=== PATIENT | female | born 1965 | race Caucasian/White ===

== ENCOUNTER 2019-03-03 12:06 | Emergency (ER) | payer OTHER ==
--- NOTE | 2019-03-03 12:11 | PDOC ---
History of Present Illness - General History Source: Patient - History of Present Illness Initial Comments: 03/03/19 12:45 The patient is a 53 year old female with a significant PMH of OA, R Rotator tear w/associated shoulder impingement and morbid obesity who presents to our ED complaining of L shoulder pain. 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 Is able to minimally range arm with pain. Denies any associated numbness/tingling , head trauma, LOC. Allergy: Naproxen Surgical: R rotator cuff repair, C/S x2, B/L carpal tunnel, TMJ x3, sinus PMD: [facility] <Carolyn Simpson - Last Filed: 03/03/19 17:47> <Genna Patel - Last Filed: 03/03/19 17:51> - General Chief Complaint: Injury Stated Complaint: LEFT SHOULDER PAIN Time Seen by Provider: 03/03/19 12:11 Past History <Carolyn Simpson - Last Filed: 03/03/19 17:47> <Genna Patel - Last Filed: 03/03/19 17:51> - Past Medical History Allergies/Adverse Reactions: Allergies Allergy/AdvReac Type Severity Reaction Status Date / Time naproxen [From Naprosyn] Allergy Intermediate Swelling Verified 03/03/19 12:49 Home Medications: Ambulatory Orders Ibuprofen [Motrin -] 800 mg PO BID 03/03/19 Oxycodone HCl 10 mg PO QID PRN #12 tablet MDD 4 03/03/19 *Physical Exam - Vital Signs Last Vital Signs Temp Pulse Resp BP Pulse Ox 98.3 F 94 H 22 H 129/67 100 03/03/19 12:07 03/03/19 14:50 03/03/19 14:50 03/03/19 14:50 03/03/19 14:50 <Genna Patel - Last Filed: 03/03/19 17:51> Procedures - Joint Reduction Left Joint Reduction Site: left: Shoulder Pre-Procedure NV Exam: normal Conscious Sedation: Yes Reduction Attempts: 1 Anesthesia: Versed Procedure: Traction Counter Traction Post-Procedure NV Exam: normal Complications: No <Carolyn Simpson - Last Filed: 03/03/19 17:47> ED Treatment Course - RADIOLOGY Radiology Studies Ordered: Category Date Time Status SHOULDER-LEFT [RAD] Stat Radiology 03/03/19 15:00 Taken - Medications Given in the ED: ED Medications Discontinued Medications Generic Name Dose Route Start Last Admin Trade Name Vanda PRN Reason Stop Dose Admin Fentanyl 100 mcg 03/03/19 13:44 03/03/19 14:51 Sublimaze Injection - IVPUSH 03/03/19 13:45 100 mcg ONCE ONE Administration Ibuprofen 600 mg 03/03/19 12:38 03/03/19 12:52 Motrin - PO 03/03/19 12:39 600 mg ONCE ONE Administration Midazolam HCl 5 mg 03/03/19 13:44 03/03/19 14:52 Versed - IVPUSH 03/03/19 13:45 5 mg ONCE ONE Administration Sodium Chloride 1,000 ml 03/03/19 15:00 03/03/19 15:00 Normal Saline - IV 03/03/19 15:01 1,000 ml ONCE ONE Administration <Genna Patel - Last Filed: 03/03/19 17:51> Medical Decision Making - Medical Decision Making 03/03/19 14:16 53 year old female with occupational shoulder injury. Will obtain L shoulder XR to r/o acute fracture vs. humeral dislocation. Patient declining pain medication at this time. Reassess. 03/03/19 14:32 Shoulder XR shows L shoulder with widened joint space alignment, inferior humeral head dislocation Patient consents to procedural sedation Fentanyl (100 mg) Versed (5 mg) 03/03/19 15:36 My read of XR shows improved humeral replacement, formal read pending 03/03/19 15:47 Post procedure BP 80's/40's - will give additional 1 L IV NS. 03/03/19 16:06 Repeat XR 03/03/19 16:28 Patient reassed @ bedside BP 94/56 - 2nd L IV NS hanging; pain significantly improved, tolerating PO intake 03/03/19 16:30 03/03/19 16:48 Repeat BP 118/94 03/03/19 17:17 VSS Will discharge home with orthopedic follow-up and return precautions. <Carolyn Simpson - Last Filed: 03/03/19 17:47> *DC/Admit/Observation/Transfer <Carolyn Simpson - Last Filed: 03/03/19 17:47> - Discharge Dispostion Decision to Admit order: No <Genna Patel - Last Filed: 03/03/19 17:51> Diagnosis at time of Disposition: Dislocation of shoulder, inferior, left, closed Qualifiers: Encounter type: initial encounter Qualified Code(s): S43.035A - Inferior dislocation of left humerus, initial encounter - Discharge Dispostion Disposition: HOME Condition at time of disposition: Stable - Prescriptions Prescriptions: Oxycodone HCl 10 mg PO QID PRN #12 tablet MDD 4 PRN Reason: Pain Level 7 - 10 - Referrals Referrals: Keyshawn Brown MD [Staff Physician] - - Patient Instructions Printed Discharge Instructions: Shoulder Dislocation Additional Instructions: Please make a follow-up appointment with your orthopedic doctor in the next 48 hours. We have provided you with a referral should you not be able to see your orthopedist or you can call your insurance company for a list of referrals. Your care is not complete until evaluated by your orthopedic surgeon. We have sent a prescription for pain medication to your pharmacy, please take as directed. Return to the Emergency Department for any new/worsening/concerning symptoms. may take tylenol/motrin every 6 hours as needed for mild pain Please take IBUPROFEN (aka MOTRIN, ADVIL, ALEVE) 400 mg and/or ACETAMINOPHEN ( aka Tylenol) 650-975 mg every 6 hours, as needed, for pain. Please do not take these medications if you have a bleeding disorder, stomach or GI ulcer problems or liver disease. Please take one tablet of OXYCODONE every 6 hours, as needed for SEVERE pain. Please do not take this medication unless you absolutely need it, it is very addictive. Please do not drive, operate heavy machinery or make important decisions while on this medication, it can cloud your judgement.
[2019-03-03 12:27] VITALS: TEMP 98.3; BMI 45.8
[2019-03-03] MEDS ORDERED: IBUPROFEN 600 MG TABLET (FP) PO ONE ×2 (12:38→12:51)
--- NOTE | 2019-03-03 12:46 | PDOC ---
Attending Attestation - Resident Resident Name: Carolyn Simpson - ED Attending Attestation I have performed the following: I have examined & evaluated the patient, The case was reviewed & discussed with the resident, I agree w/resident's findings & plan - HPI HPI: 03/03/19 12:43 53-year-old female with history of osteoarthritis, rotator cuff injury, obesity p/w left shoulder pain today. 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 able to move her arm, but worse with pain. +numbness/tingling to fingers ; no weakness. no skin changes. no fall or head injury no meds taken [employer] P[employer]ER 03/03/19 17:54 - Physicial Exam PE: 03/03/19 12:46 General: NAD, well appearing, obese Vascular: 2+ DP pulses symmetric and equal. Back: no midline tenderness, no stepoffs, FROM Focused MSK/Neuro Exam of Upper Extremity: shoulder abduction/adduction/flexion /extension and prox strength 5/5 actively against resistance. 5/5 shoulder shrug strength. deltoid sensation intact; +left AC jt/anterior shoulder TTP. sensation grossly intact in median/radial/ulnar distribution. distal institute scientist strength 5/5. 2+ radialis pulses bilaterally and symmetric. Skin: color normal color, warm and well perfused. 03/03/19 17:54 - Medical Decision Making 03/03/19 12:45 ddx. shoulder strain/sprain, dislocation, AC jt separation, calcific tendonitis , arthritis falre. analgesia here. VS reviewed, wnl. NVI. Xray left shoulder with widened joint space alignment, no acute fx - suspecting inferior shoulder dislocation procedural sedation, see note, fentanyl and versed. monitoring engineer. consent signed. NVI prior to procedure tolerated, attempted external and superior traction/counter traction, no palp clunk improved alignment, ROM improved with adduction/abduction/ ext and int rotation. 2+ radialis pulses, cap refill <2 sec, 5/5 shoulder shrug and deltoid sensation intact bilaterally. NVI on post procedure repeat post red Xray with improved left glenohumeral jt alignment, may have still residual inf dislocation but exam much improved, alignment is satisfactory and no gross fx/dislocation noted maintain shoulder sling. low BP here 2/2 medication/conscious sedation effect, given 2L fluids and improving, close monitoring w/o acute events or AMS. Discussed results with patient. sling, immobilization. Rest ice and elevation. Pain control with OTC meds including motrin/tylenol as needed every 6 hours; no narcotics needed. Ortho followup provided, she sees Dr Ileana murdock with [facility] - told to f/u ortho, our referrals given too. Please return to ED for increased pain, weakness, numbness/tingling, fever, or redness. Please take IBUPROFEN (aka MOTRIN, ADVIL, ALEVE) 400 mg and/or ACETAMINOPHEN ( aka Tylenol) 650-975 mg every 6 hours, as needed, for pain. Please do not take these medications if you have a bleeding disorder, stomach or GI ulcer problems or liver disease. 03/03/19 17:52
[2019-03-03] MEDS ORDERED: MIDAZOLAM HCL 5 MG/1 ML Single Dose Vial IVPUSH ONE (13:44)
[2019-03-03] MEDS ORDERED: fentaNYL CITRATE 250 MCG/5 ML VIAL IVPUSH ONE (13:44)
[2019-03-03] MEDS ORDERED: MIDAZOLAM HCL 2 MG/2 ML SINGLE DOSE VIAL ONE (14:26)
[2019-03-03] MEDS ORDERED: SODIUM CHLORIDE 0.9% 500 ML INFUS.BAG IV ONE ×2 (15:00→15:47)
--- NOTE | 2019-03-03 15:30 | PDOC ---
Moderate Sedation - Post Procedure Assessment Tolerated procedure well: Yes Was a reversal agent used?: No Patient evaluation: Awake, alert and oriented, Vital signs reviewed, Pain controlled Printed Discharge Instructions given: Yes <Carolyn Simpson - Last Filed: 03/03/19 17:19> - Procedure Monitoring Vital Signs: 03/03/19 17:52 Vital Signs Temp Pulse Resp BP Pulse Ox 98.3 F 78 16 98/55 L 98 03/03/19 12:07 03/03/19 17:49 03/03/19 17:49 03/03/19 17:49 03/03/19 17:49 - Post Procedure Assessment Complications [comment]: mild hypotension, responsive to fluids and close monitoring <eGnna Patel - Last Filed: 03/03/19 17:52>
[2019-03-03 17:29] VITALS: PULSE 78
[2019-03-03 19:16] VITALS: BP 98/55
== END 2019-03-03 17:59 | disposition home or self-care (01) ==
LOC: FER 12:06
PROC: 0RSKXZZ Reposition Left Shoulder Joint, External Approach (ICD-10-PCS; principal; 2019-03-03)
PROC: 3E0337Z Introduction of Electrolytic and Water Balance Substance into Peripheral Vein, Percutaneous Approach (ICD-10-PCS; 2019-03-03)
PROC: 3E033NZ Introduction of Analgesics, Hypnotics, Sedatives into Peripheral Vein, Percutaneous Approach (ICD-10-PCS; 2019-03-03)
DX: S43.035A Inferior dislocation of left humerus, initial encounter (principal); X58.XXXA Exposure to other specified factors, initial encounter; Y93.G1 Activity, food preparation and clean up; Y92.000 Kitchen of unspecified non-institutional (private) residence as the place of occurrence of the external cause; M19.90 Unspecified osteoarthritis, unspecified site; E66.01 Morbid (severe) obesity due to excess calories; Z68.42 Body mass index [BMI] 45.0-49.9, adult
CPT/HCPCS: 73030-TC-LT-FY; 99283-25